=== PATIENT | female | born 1980 | race Caucasian/White ===

== ENCOUNTER → 2019-09-08 10:16 | Outpatient (CLI) | payer OTHER, SELFPAY ==
--- NOTE | ~2019-09-08 | US_ITS ---
EXAMINATION: US pelvic complete DATE: 09/08/2019 10:35 INDICATION: Menorrhagia Comparison:No prior studies for comparison. TECHNIQUE: Multiple transabdominal sonographic images of the pelvis performed. FINDINGS: The uterus measures 8.3 x 4.4 x 5.6 cm. The endometrial complex measures 1 cm. The right ovary measures 3.7 x 2.4 x 3.1 cm and the left ovary measures 2.6 x 1.7 x 2.7 cm. There ar e small follicles in each ovary. There is a septated 1.6 cm right ovarian cyst, likely functional. There is no free fluid in the pelvis. There are no abnormal masses seen on either side. IMPRESSION: 1. Right ovarian cyst measuring 1.6 cm. Otherwise, unremarkable pelvic ultrasound. Reviewed, dictated and finalized at location A. IMPRESSION: 1. Right ovarian cyst measuring 1.6 cm. Otherwise, unremarkable pelvic ultrasou nd.
== END ==
PROVIDERS: Visit Provider Nurse Practitioner
DX: N83.201 Unspecified ovarian cyst, right side (principal)
CPT/HCPCS: 76856

== ENCOUNTER 2022-06-09 12:00 | Emergency (ER) | payer OTHER, SELFPAY ==
[2022-06-09 12:34] VITALS: BP 128/66; PULSE 109; RESP 20; TEMP 37.3; O2SAT 97
--- NOTE | 2022-06-09 12:48 | ED.URI ---
HPI - URI/Sore Throat General Chief Complaint: Upper Respiratory Infection Stated Complaint: cold flu Time Seen by Provider: 06/09/22 12:50 Source: patient, RN notes reviewed and old records reviewed Mode of arrival: ambulatory Limitations: no limitations History of Present Illness HPI Narrative: 41-year-old female history lupus and RA presents to the [facility] with complaints of body aches, low-grade fever, laryngitis, sore throat. Was at a last week and there was a lot of people coughing. Related Data Home Medications Medication Instructions Recorded Confirmed adalimumab 40 mg/0.4 mL 40 mg subcut DAILY 06/09/22 06/09/22 subcutaneous pen kit (Humira(CF) Pen) dextroamphetamine-amphetamine ER 30 mg PO DAILY 06/09/22 06/09/22 30 mg 24hr capsule,extend release ergocalciferol (vitamin D2) 1,250 1,250 mcg WEEKLY 06/09/22 06/09/22 mcg (50,000 unit) capsule furosemide 20 mg tablet 20 mg DAILY 06/09/22 06/09/22 hydroxychloroquine 200 mg tablet 200 mg PO BID 06/09/22 06/09/22 linaclotide 72 mcg capsule 72 mcg DAILY 06/09/22 06/09/22 (Linzess) methotrexate sodium 2.5 mg tablet 250 mg WEEKLY 06/09/22 06/09/22 Allergies Allergy/AdvReac Type Severity Reaction Status Date / Time aspirin Allergy Mild Gastrointestinal Verified 06/09/22 12:18 Upset Review of Systems Review of Systems: All systems reviewed & are unremarkable except as noted in HPI and below Constitutional: Constitutional: Reports as per HPI and Reports fatigue Eyes: Eyes: Reports no additional eye complaints ENT: Reports as per HPI Cardiovascular: Cardiovascular: Reports no additional cardiovascular complaints, Denies chest pain and Denies dyspnea Respiratory: Respiratory: Reports as per HPI, Denies chest congestion, Reports cough and Denies dyspnea Gastrointestinal: Gastrointestinal: Reports no additional gastrointestinal complaints, Denies abdominal pain, Denies nausea and Denies vomiting Musculoskeletal: Musculoskeletal: Reports no additional musculoskeletal complaints Integumentary/Breasts: Skin/Breast: Reports system reviewed and no additional complaints, except as docu Neurologic: Reports system reviewed and no additional complaints, except as documented Psychiatric: Psychiatric: Reports no additional psychiatric complaints Allergic/Immunologic: Allergic/Immunologic: Reports no additional allergic/immunologic complaints [facility] Family History Family History Mother Hypertension Grandparent Family history of malignant neoplasm of cervix Family history of primary malignant neoplasm of liver Other Family history of malignant neoplasm Family history of malignant neoplasm of breast Family history of malignant neoplasm of uterus Malignant neoplasm of prostate Social History Social History Smoking status: Never smoker Alcohol intake: never Comments At the time of my signature, I reviewed and agree with the nursing past medical, surgical, social, and family history. There is no relevant family history pertinent to the patient complaint. Exam Const: General: cooperative, healthy appearing, comfortable, no acute distress, well developed, alert and well nourished Nutritional Appearance: well nourished Orientation/consciousness: patient oriented x3 Limitations: no limitations HENMT: Head: normal to inspection Ears: hearing grossly normal bilaterally and external ears normal Face/Nose/Sinus: Normal external nose present, Normal nares present, Normal nasal mucous membranes and turbinates present and normal facial exam Face and sinus: normal facial exam Mouth: Yes Normal oral and palatal mucosa present, Yes lip normal and Yes moist mucous membranes Throat: posterior oropharynx normal and uvula midline Eyes: General: appearance normal, both eyes and all related structures Alignment and Position: alignment n
== END 2022-06-09 13:19 | disposition home or self-care (01) ==
PROVIDERS: Emergency Provider Nurse Practitioner; PCP Nurse Practitioner Family
DX: U07.1 COVID-19 (principal); M32.9 Systemic lupus erythematosus, unspecified; M06.9 Rheumatoid arthritis, unspecified
CPT/HCPCS: 87426; 99203; C9803; G0463

== ENCOUNTER 2023-12-31 13:17 | Emergency (ER) | payer OTHER, SELFPAY ==
[2023-12-31 13:33] VITALS: BP 122/61; PULSE 66; RESP 16; TEMP 37.1; O2SAT 99
--- NOTE | 2023-12-31 13:53 | ED.GENADULT ---
HPI - General Adult General Chief complaint: Burn/Smoke Inhalation Stated complaint: left hand burn Source: patient Mode of arrival: ambulatory Limitations: no limitations History of Present Illness HPI narrative: 43-year-old female presented for complaint of a burn to the left hand sustained just prior to arrival. She states she burned the skin to the palm, index finger and thumb on gravy from a microwaveable meal after she removed the plastic. Rinsed the hand with water and applied burn cream. States the pain with movement of the fingers caused her to seek evaluation. Tetanus is up to date per pt. denies swelling, numbness, tingling, weakness of the hand. Related Data Home Medications Medication Instructions Recorded Confirmed adalimumab 40 mg/0.4 mL 40 mg subcut DAILY 06/09/22 12/31/23 subcutaneous pen kit (Humira(CF) Pen) ergocalciferol (vitamin D2) 1,250 1,250 mcg WEEKLY 06/09/22 12/31/23 mcg (50,000 unit) capsule furosemide 20 mg tablet 20 mg DAILY 06/09/22 12/31/23 hydroxychloroquine 200 mg tablet 200 mg PO BID 06/09/22 12/31/23 linaclotide 72 mcg capsule 72 mcg DAILY 06/09/22 12/31/23 (Linzess) Allergies Allergy/AdvReac Type Severity Reaction Status Date / Time aspirin Allergy Mild Gastrointestinal Verified 06/09/22 12:18 Upset Review of Systems Review of Systems: CONSTITUTIONAL: Denies body aches, fever, chills, or sweats. EYES: Denies visual changes, redness, or discharge. ENT: Denies rhinorrhea, congestion CARDIOVASCULAR: Denies chest pain, palpitations, or edema. RESPIRATORY: Denies cough or dyspnea. GASTROINTESTINAL: Denies abdominal pain, nausea, vomiting, or diarrhea. SKIN: reports burn to the left hand MUSCULOSKELETAL: Denies back pain, joint pain, or myalgia. NEUROLOGIC: Denies headache, numbness, tingling, or weakness. [facility] Family History Family History Mother Hypertension Grandparent Family history of malignant neoplasm of cervix Family history of primary malignant neoplasm of liver Other Family history of malignant neoplasm Family history of malignant neoplasm of breast Family history of malignant neoplasm of uterus Malignant neoplasm of prostate Social History Social History Smoking status: Never smoker Alcohol intake: never Comments At time of signature, I have reviewed and agree with nursing past medical, surgical, social and family history unless otherwise noted. Please see nursing chart for further information. There is no relevant family history pertinent to the presenting complaint Exam Narrative: GENERAL: Well-appearing ENT: Mucous membranes moist. Oropharynx without edema, erythema or lesions. NECK: Supple. No lymphadenopathy CHEST: Clear to auscultation. HEART: Regular rate and rhythm. SKIN: Warm, dry. left palm with 3 round flat blisters approx 0.5cm each, minimal erythema to radial aspect of 2nd digit and thumb, no swelling. CMS intact. NEURO: Alert and oriented x3. Course Course Emergency Course: Patient is aware of diagnosis, understands and agrees to treatment plan. Anticipatory guidance given. Patient agrees to follow-up as directed and is aware of reasons to seek care at the emergency department. Portions of this record may have been created with voice recognition software Level of Care: Express Care Visit Vital Signs Vital signs: Vital Signs Temperature 98.8 F 12/31/23 13:33 Pulse Rate 66 12/31/23 13:33 Respiratory Rate 16 12/31/23 13:33 Blood Pressure 122/61 12/31/23 13:33 Pulse Oximetry 99 12/31/23 13:33 Oxygen Delivery Room Air 12/31/23 13:33 Temperature 98.8 F 12/31/23 13:33 Pulse Rate 66 12/31/23 13:33 Respiratory Rate 16 12/31/23 13:33 Blood Pressure 122/61 12/31/23 13:33 Pulse Oximetry 99 12/31/23 13:33 Oxygen Delivery Room Air 12/31/23 13:
== END 2023-12-31 14:12 | disposition home or self-care (01) ==
PROVIDERS: Emergency Provider Nurse Practitioner Family; PCP Nurse Practitioner Family
DX: T23.252A Burn of second degree of left palm, initial encounter (principal); X10.1XXA Contact with hot food, initial encounter; M32.9 Systemic lupus erythematosus, unspecified; M06.9 Rheumatoid arthritis, unspecified
CPT/HCPCS: 99213; G0463